=== PATIENT | male | born 1970 | race Two or more races ===

== ENCOUNTER 2020-03-04 07:31 | Emergency (ER) | payer OTHER ==
[~2020-03-04] VITALS: Ht 177.8 cm; Wt 101.8 kg
[2020-03-04 08:27] LABS: EOSINOPHILS % 1.9 % (0.0-5.0); HEMATOCRIT. 52.4 % (42.0-52.0); HEMOGLOBIN. 17.5 g/dL (14.0-18.0); LYMPHOCYTES % 19.9 % (20.0-50.0); MEAN CORPUSCULAR VOLUME 95.9 fL (80.0-94.0); MEAN PLATELET VOLUME 9.1 fl (7.4-10.4); MONOCYTES % 5.8 % (2.0-8.0); NEUTROPHILS % 71.4 % (40.0-76.0); PLATELET 256 x1000/uL (130-400); RED BLOOD CELL COUNT 5.47 mill/uL (4.7-6.1); RED CELL DISTRIBUTION WIDTH 13.7 % (11.6-14.6)
[2020-03-04 08:33] LABS: CHLORIDE 103 mEq/L (98-107)
[2020-03-04 08:35] LABS: PROTHROMBIN TIME 10.3 sec (9.6-11.0)
[2020-03-04 08:38] LABS: ETHANOL BLOOD < 10 mg/dL
[2020-03-04 08:40] LABS: LDL CHOLESTEROL 294 mg/dL (5-100)
[2020-03-04] MEDS: LABETALOL 5MG/ML SYR 20 MG/4 ML SYRINGE IV ONE (08:53)
[2020-03-04] MEDS ORDERED: SODIUM CHLORIDE 0.9% 10ML VIAL ONE (09:00)
[2020-03-04] MEDS ORDERED: ETOMIDATE 2MG/ML 10ML VIAL IV ONE (09:00)
[2020-03-04] MEDS ORDERED: VECURONIUM BROMIDE 10 MG/VIAL IV ONE (09:00)
[2020-03-04] MEDS ORDERED: IOHEXOL-350 100 ML BOTTLE ONE (09:16)
[2020-03-04] MEDS ORDERED: ASPIRIN 325MG EC TABLET PO ONE (09:30)
[2020-03-04] MEDS: LORAZEPAM 2MG/ML CPJ IV ONE (10:33)
[2020-03-04] MEDS: PROPOFOL 10MG/ML 100ML 100 ML IV STA (10:40)
[2020-03-04 10:50] VITALS: BP 152/78
[2020-03-04 10:59] LABS: BG BASE EXCESS -2.9 mmol/L (-2.0-2.0); BG CARBOXYHEMOGLOBIN 0.5 % (0.5-1.5); BG DEOXYHEMOGLOBIN 4.2 % (0.0-5.0); BG FRACTION INSPIRED OXYGEN 50; BG HCO3 ACT 24.3 mmol/L (22.0-26.0); BG METHEMOGLOBIN 0.5 % (0.0-1.5); BG OXYGEN SATURATION 95.8 % (92.0-98.5); BG OXYHEMOGLOBIN 94.8 % (94.0-97.0); BG PCO2 50.6 mmHg (35.0-45.0); BG PO2 87.1 mmHg (75.0-100.0); BG SAMPLE SITE RIGHT BRACHIAL; BG TOTAL HEMOGLOBIN 19.2 g/dL (12.0-18.0); BG TOTAL RESPIRATORY RATE 18 b/min; BG VENT MODE VENT - AC
[2020-03-04] MEDS: ASPIRIN 300MG SUPP PR ONE (11:00)
== END 2020-03-04 11:14 | disposition short-term general hospital (02) ==
LOC: ER 07:31
DX: I63.9 Cerebral infarction, unspecified (principal)
CPT/HCPCS: 31500; 36415; 36600; 70496; 70498; 71045; 80053; 80320; 82375; 82805; 82962; 83721; 83880; 84484; 85025; 93005; 94002; 96374; 96375; 99285; J2060; J2704; J3490; Q9967; A4315; G0480